=== PATIENT | female | born 1990 | race African-American/Black ===

== ENCOUNTER 2023-07-25 19:02 | Inpatient (IN) | payer OTHER ==
[2023-07-25 20:40] LABS: PH,URINE 5.5 (5.0-8.0); URINE APPEARANCE CLOUDY; URINE BILIRUBIN 1+ (NEGATIVE); URINE COLOR DK YELLOW; URINE GLUCOSE (UA) NEGATIVE (NEGATIVE); URINE KETONE 2+ (NEGATIVE); URINE LEUK ESTERASE 2+ (NEGATIVE); URINE NITRITE NEGATIVE (NEGATIVE); URINE PROTEIN 3+ (NEGATIVE)
[2023-07-25 20:41] LABS: HCG,QUALITATIVE URINE Negative
[2023-07-25 20:41] LABS: BASO % 0.2 % (0-2.0); EOS % 0.1 % (0-4.5); HEMOGLOBIN 11.9 GM/dL (10.7-15.3); LYMPH % 6.2 % (8-40); MCH 25.2 pg (25.7-33.7); MCHC 32.9 g/dl (32.0-36.0); MEAN CELL VOLUME 76.6 fl (80-96); MEAN PLT VOLUME 8.6 fl (7.5-11.1); MONO % 5.9 % (3.8-10.2); NEUT % 87.6 % (42.8-82.8); PLATELET COUNT 312 10^3/uL (134-434); RBC 4.71 M/mm3 (3.60-5.2); RDW 17.1 % (11.6-15.6); WHITE BLOOD COUNT 22.2 K/mm3 (4.0-10.0)
[2023-07-25 20:54] LABS: POTASSIUM 3.4 mmol/L (3.5-5.1)
[2023-07-25 20:54] LABS: EPI CELLS 27.1 /uL (0-25.1); HYALINE CASTS 69.87 /uL (0-3.1); URINE BACTERIA 171.6 /uL (0-1359); URINE WBC 699.6 /uL (0-25.8)
[2023-07-25] MEDS ORDERED: ACETAMINOPHEN INJECTION 100 ML IVPB ONE (20:54)
[2023-07-25 20:56] LABS: ALBUMIN 2.5 g/dl (3.4-5.0); CALCIUM 8.8 mg/dL (8.5-10.1)
[2023-07-25 20:57] LABS: BLOOD UREA NITROGEN 9.8 mg/dL (7-18)
[2023-07-25 20:59] LABS: CREATININE 0.9 mg/dL (0.55-1.3)
[2023-07-25] MEDS: ACETAMINOPHEN 1000 MG/100 ML BAG IVPB ONE (21:00)
[2023-07-25 21:01] LABS: BILIRUBIN,TOTAL 0.4 mg/dL (0.2-1)
[2023-07-25] MEDS: SODIUM CHLORIDE 0.9% 500 ML INFUS.BAG IV ONE ×2 (21:01→23:40)
[2023-07-25] MEDS ORDERED: ONDANSETRON 4 MG/2 ML VIAL ONE (21:33)
[2023-07-25 21:39] LABS: ANISOCYTOSIS 2+; MACROCYTOSIS 0; OVALOCYTE 1+
[2023-07-25] MEDS: ONDANSETRON 4 MG/2 ML VIAL IVPUSH ONE (21:56)
[2023-07-25] MEDS ORDERED: CEFTRIAXONE 1 GM/50 ML BAG ONE (22:31)
[2023-07-25] MEDS: CEFTRIAXONE 1 GM in DEXTROSE 5%-WATER - 50 ML IVPB ONE (22:41)
[2023-07-25] MEDS ORDERED: PIPERACILLIN/TAZOB 3.375 GM 3.375 GM/50 ML BAG IVPB ONE (22:45)
[2023-07-25] MEDS: PIPERACILLIN/TAZOB 3.375 GM 3.375 GM in DEXTROSE 5%-WATER - 50 ML IVPB ONE (22:54)
[2023-07-25] MEDS ORDERED: VANCOMYCIN 1 GRAM (PRE-DOCKED) 1,000 MG/250 ML BAG IVPB ONE (23:35)
[2023-07-25] MEDS: VANCOMYCIN 1,000 MG in DEXTROSE 5%-WATER - 250 ML IVPB ONE (23:40)
[2023-07-26] MEDS: morphine CARPU-JECT 2 MG/1 ML DISP.SYRIN IVPUSH ONE (00:14)
[2023-07-26] MEDS ORDERED: ALBUTEROL SO4 HFA INHALER IH PRN (00:57)
[2023-07-26] MEDS: SODIUM CHLORIDE 0.9%/KCL 20 MEQ/1,000 ML INFUS.BAG IV SCH (02:06)
[2023-07-26] MEDS: ACETAMINOPHEN 1000 MG/100 ML BAG IVPB PRN (03:20)
[2023-07-26 04:05] VITALS: BMI 33.5
[2023-07-26] MEDS: ONDANSETRON 4 MG/2 ML VIAL IVPUSH PRN (07:05)
[2023-07-26] MEDS: PIPERACILLIN/TAZOB 4.5 GM 4.5 GM in DEXTROSE 5%-WATER 100 ML IVPB SCH ×3 (08:30→17:26)
[2023-07-26] MEDS: PANTOPRAZOLE SODIUM 40 MG VIAL IVPUSH SCH (09:08)
[2023-07-26] MEDS ORDERED: CEFTRIAXONE 2,000 MG in DEXTROSE 5%-WATER - 50 ML IVPB SCH (10:00)
[2023-07-26] MEDS: PIPERACILLIN/TAZOB 4.5 GM 4.5 GM in DEXTROSE 5%-WATER 100 ML IVPB ONE (11:40)
[2023-07-26 12:25] LABS: HEMATOCRIT 33.4 % (32.4-45.2); HEMOGLOBIN 10.5 GM/dL (10.7-15.3); MCH 24.6 pg (25.7-33.7); MCHC 31.5 g/dl (32.0-36.0); MEAN PLT VOLUME 9.1 fl (7.5-11.1); PLATELET COUNT 281 10^3/uL (134-434); RBC 4.28 M/mm3 (3.60-5.2); RDW 17.2 % (11.6-15.6); WHITE BLOOD COUNT 20.8 K/mm3 (4.0-10.0)
[2023-07-26 12:42] LABS: INR 1.51 (0.83-1.09); PROTHROMBIN TIME (PATIENT) 17.4 SEC (9.7-13.0)
[2023-07-26 12:50] LABS: CALCIUM 8.5 mg/dL (8.5-10.1)
[2023-07-26 12:51] LABS: ALBUMIN 2.2 g/dl (3.4-5.0); BLOOD UREA NITROGEN 6.9 mg/dL (7-18); MAGNESIUM 2.5 mg/dL (1.8-2.4)
[2023-07-26 12:54] LABS: CREATININE 0.7 mg/dL (0.55-1.3); PHOSPHOROUS 2.4 mg/dL (2.5-4.9)
[2023-07-26 12:56] LABS: BILIRUBIN,TOTAL 0.7 mg/dL (0.2-1); TOT PROT 6.6 g/dl (6.4-8.2)
[2023-07-26] MEDS: ENOXAPARIN NA (PORCINE) 40 MG/0.4 ML DISP.SYRIN SQ SCH (13:33)
[2023-07-26 13:50] LABS: POTASSIUM 3.7 mmol/L (3.5-5.1)
[2023-07-26 13:51] LABS: ANISOCYTOSIS 0; HELMET CELLS 0; HOWELL-JOLLY BODIES 0; MACROCYTOSIS 0; OVALOCYTE 0; ROULEAU 0; SICKELED CELLS 0; TARGET CELLS 0; TEAR DROP CELLS 0; TOXIC GRANULATION 0
[2023-07-27 08:12] LABS: INR 1.72 (0.83-1.09); PROTHROMBIN TIME (PATIENT) 19.9 SEC (9.7-13.0)
[2023-07-27 08:22] LABS: BASO % 0.3 % (0-2.0); EOS % 0.1 % (0-4.5); HEMATOCRIT 31.8 % (32.4-45.2); HEMOGLOBIN 10.1 GM/dL (10.7-15.3); LYMPH % 6.1 % (8-40); MCH 24.8 pg (25.7-33.7); MCHC 31.7 g/dl (32.0-36.0); MEAN CELL VOLUME 78.4 fl (80-96); MEAN PLT VOLUME 9.6 fl (7.5-11.1); MONO % 7.6 % (3.8-10.2); NEUT % 85.9 % (42.8-82.8); PLATELET COUNT 239 10^3/uL (134-434); RBC 4.05 M/mm3 (3.60-5.2); RDW 17.2 % (11.6-15.6); WHITE BLOOD COUNT 13.2 K/mm3 (4.0-10.0)
[2023-07-27 08:41] LABS: POTASSIUM 3.7 mmol/L (3.5-5.1)
[2023-07-27 08:53] LABS: ALBUMIN 1.9 g/dl (3.4-5.0); BLOOD UREA NITROGEN 6.8 mg/dL (7-18); CALCIUM 7.9 mg/dL (8.5-10.1)
[2023-07-27 08:54] LABS: MAGNESIUM 2.2 mg/dL (1.8-2.4)
[2023-07-27 08:56] LABS: CREATININE 0.8 mg/dL (0.55-1.3); PHOSPHOROUS 2.1 mg/dL (2.5-4.9)
[2023-07-27 08:57] LABS: BILIRUBIN,TOTAL 0.5 mg/dL (0.2-1); TOT PROT 6.1 g/dl (6.4-8.2)
[2023-07-27] MEDS: PHYTONADIONE 5 MG TABLET PO ONE (13:53)
[2023-07-28 08:20] LABS: BASO % 0.2 % (0-2.0); EOS % 0.4 % (0-4.5); HEMATOCRIT 30.9 % (32.4-45.2); HEMOGLOBIN 10.2 GM/dL (10.7-15.3); LYMPH % 10.7 % (8-40); MCH 25.3 pg (25.7-33.7); MCHC 32.9 g/dl (32.0-36.0); MEAN CELL VOLUME 76.7 fl (80-96); MEAN PLT VOLUME 8.6 fl (7.5-11.1); MONO % 12.2 % (3.8-10.2); NEUT % 76.5 % (42.8-82.8); PLATELET COUNT 250 10^3/uL (134-434); RBC 4.03 M/mm3 (3.60-5.2); RDW 17.5 % (11.6-15.6); WHITE BLOOD COUNT 13.7 K/mm3 (4.0-10.0)
[2023-07-28 08:31] LABS: INR 1.54 (0.83-1.09); PROTHROMBIN TIME (PATIENT) 17.8 SEC (9.7-13.0)
[2023-07-28 09:02] LABS: POTASSIUM 3.6 mmol/L (3.5-5.1)
[2023-07-28 09:07] LABS: ALBUMIN 1.9 g/dl (3.4-5.0); BLOOD UREA NITROGEN 5.5 mg/dL (7-18); MAGNESIUM 1.8 mg/dL (1.8-2.4)
[2023-07-28 09:10] LABS: CREATININE 0.7 mg/dL (0.55-1.3)
[2023-07-28 09:11] LABS: BILIRUBIN,TOTAL 0.3 mg/dL (0.2-1)
[2023-07-28 09:12] LABS: TOT PROT 5.9 g/dl (6.4-8.2)
[2023-07-28] MEDS ORDERED: BUPIVACAINE HCL/PF 0.25% (2.5MG/ML) 10 ML VIAL ONE (10:00)
[2023-07-28] MEDS ORDERED: FENTANYL CITRATE/PF 50 MCG/ML VIAL ONE ×9 (10:23→15:54)
[2023-07-28] MEDS ORDERED: PROPOFOL 40 ML ONE (10:23)
[2023-07-28] MEDS ORDERED: ROCURONIUM BROMIDE 50 MG/5 ML SYRINGE ONE (10:23)
[2023-07-28] MEDS ORDERED: MIDAZOLAM HCL 2 MG/2 ML SINGLE DOSE VIAL ONE (10:24)
[2023-07-28] MEDS: PIPERACILLIN/TAZOBACTAM 4.5 GM VIAL IVPB ONE (11:15)
[2023-07-28] MEDS: BUPIVACAINE HCL/PF 0.25% (2.5MG/ML) 10 ML VIAL IJ ONE (11:22)
[2023-07-28] MEDS ORDERED: SUGAMMADEX SODIUM 200 MG/2 ML VIAL ONE (13:01)
[2023-07-28] MEDS ORDERED: ACETAMINOPHEN INJECTION 100 ML IVPB ONE (13:03)
[2023-07-28] MEDS ORDERED: PROPOFOL 20 ML ONE (13:21)
[2023-07-28] MEDS ORDERED: LACTATED RINGERS SOLUTION 1,000 ML IV SCH (14:00)
[2023-07-28] MEDS ORDERED: ONDANSETRON 4 MG/2 ML VIAL ONE (14:45)
[2023-07-28] MEDS: ONDANSETRON 4 MG/2 ML VIAL IVPUSH PRN (14:47)
[2023-07-28] MEDS: SODIUM CHLORIDE 0.9%/KCL 20 MEQ/1,000 ML INFUS.BAG IV SCH (15:45)
[2023-07-28] MEDS: PIPERACILLIN/TAZOB 4.5 GM 4.5 GM in DEXTROSE 5%-WATER 100 ML IVPB SCH (17:10)
[2023-07-29] MEDS: ACETAMINOPHEN 1000 MG/100 ML BAG IVPB PRN (01:47)
[2023-07-29 08:36] LABS: BASO % 0.2 % (0-2.0); EOS % 0.1 % (0-4.5); HEMATOCRIT 30.4 % (32.4-45.2); HEMOGLOBIN 9.6 GM/dL (10.7-15.3); MCH 24.6 pg (25.7-33.7); MCHC 31.7 g/dl (32.0-36.0); MEAN CELL VOLUME 77.6 fl (80-96); MEAN PLT VOLUME 9.3 fl (7.5-11.1); MONO % 7.8 % (3.8-10.2); NEUT % 82.9 % (42.8-82.8); PLATELET COUNT 253 10^3/uL (134-434); RBC 3.91 M/mm3 (3.60-5.2); RDW 17.7 % (11.6-15.6)
[2023-07-29 08:42] LABS: INR 1.56 (0.83-1.09)
[2023-07-29 08:51] LABS: POTASSIUM 4.1 mmol/L (3.5-5.1)
[2023-07-29 08:59] LABS: ALBUMIN 1.5 g/dl (3.4-5.0); BLOOD UREA NITROGEN 3.9 mg/dL (7-18); CALCIUM 7.4 mg/dL (8.5-10.1); MAGNESIUM 1.7 mg/dL (1.8-2.4)
[2023-07-29 09:02] LABS: CREATININE 0.5 mg/dL (0.55-1.3)
[2023-07-29 09:03] LABS: BILIRUBIN,TOTAL 0.3 mg/dL (0.2-1)
[2023-07-29] MEDS: ENOXAPARIN NA (PORCINE) 40 MG/0.4 ML DISP.SYRIN SQ SCH (09:54)
[2023-07-29] MEDS: PANTOPRAZOLE SODIUM 40 MG VIAL IVPUSH SCH (09:55)
[2023-07-29] MEDS: MAGNESIUM OXIDE 400 MG TABLET (FP) PO ONE (10:12)
[2023-07-29] MEDS ORDERED: oxyCODONE HCL 5 MG TABLET PO PRN ×3 (11:05→11:06)
[2023-07-29] MEDS: IBUPROFEN 600 MG TABLET (FP) PO SCH (12:40)
[2023-07-29] MEDS: POLYETHYLENE GLYCOL (HEALTHYLAX) 3350 17 GM PACKET PO SCH (12:41)
[2023-07-29] MEDS: ACETAMINOPHEN 500 MG TABLET (FP) PO SCH (15:35)
[2023-07-29] MEDS: AMINO ACIDS/PROTEIN HYDROLYS 30 ML LIQUID.PKT PO SCH (17:11)
[2023-07-30 08:16] LABS: INR 1.57 (0.83-1.09); PROTHROMBIN TIME (PATIENT) 18.1 SEC (9.7-13.0)
[2023-07-30 08:17] LABS: BASO % 0.2 % (0-2.0); EOS % 0.6 % (0-4.5); HEMATOCRIT 26.8 % (32.4-45.2); HEMOGLOBIN 8.7 GM/dL (10.7-15.3); LYMPH % 7.5 % (8-40); MCH 24.9 pg (25.7-33.7); MCHC 32.4 g/dl (32.0-36.0); MEAN PLT VOLUME 9.6 fl (7.5-11.1); MONO % 6.6 % (3.8-10.2); NEUT % 85.1 % (42.8-82.8); PLATELET COUNT 270 10^3/uL (134-434); RBC 3.48 M/mm3 (3.60-5.2); RDW 17.3 % (11.6-15.6); WHITE BLOOD COUNT 16.4 K/mm3 (4.0-10.0)
[2023-07-30 08:26] LABS: POTASSIUM 4.1 mmol/L (3.5-5.1)
[2023-07-30 08:58] LABS: ALBUMIN 1.5 g/dl (3.4-5.0); CREATININE 0.4 mg/dL (0.55-1.3); MAGNESIUM 1.9 mg/dL (1.8-2.4)
[2023-07-30 08:59] LABS: CALCIUM 7.8 mg/dL (8.5-10.1)
[2023-07-30 09:00] LABS: BILIRUBIN,TOTAL 0.3 mg/dL (0.2-1)
[2023-07-30] MEDS: POLYETHYLENE GLYCOL (HEALTHYLAX) 3350 17 GM PACKET PO SCH (10:21)
[2023-07-30] MEDS: MAGNESIUM OXIDE 400 MG TABLET (FP) PO ONE (10:21)
[2023-07-30 21:11] VITALS: RESP 20
[2023-07-31 08:45] LABS: BASO % 0.2 % (0-2.0); EOS % 1.4 % (0-4.5); HEMATOCRIT 27.9 % (32.4-45.2); HEMOGLOBIN 9.3 GM/dL (10.7-15.3); LYMPH % 10.6 % (8-40); MCH 25.3 pg (25.7-33.7); MCHC 33.2 g/dl (32.0-36.0); MEAN CELL VOLUME 76.3 fl (80-96); MONO % 6.8 % (3.8-10.2); PLATELET COUNT 380 10^3/uL (134-434); RBC 3.65 M/mm3 (3.60-5.2); RDW 17.8 % (11.6-15.6); WHITE BLOOD COUNT 16.4 K/mm3 (4.0-10.0)
[2023-07-31 09:02] LABS: POTASSIUM 3.5 mmol/L (3.5-5.1)
[2023-07-31 09:04] LABS: BLOOD UREA NITROGEN 4.8 mg/dL (7-18); CALCIUM 8.3 mg/dL (8.5-10.1)
[2023-07-31 09:05] LABS: ALBUMIN 1.7 g/dl (3.4-5.0)
[2023-07-31 09:07] LABS: CREATININE 0.5 mg/dL (0.55-1.3)
[2023-07-31 09:09] LABS: BILIRUBIN,TOTAL 0.3 mg/dL (0.2-1); TOT PROT 5.8 g/dl (6.4-8.2)
[2023-07-31 09:50] VITALS: BP 115/73; PULSE 80; TEMP 98
[2023-07-31] MEDS: POTASSIUM CHLORIDE TABS 20 MEQ TABLET.ER (FP) PO ONE (10:17)
== END 2023-07-31 11:15 | disposition home or self-care (01) | DRG 225 ==
LOC: JER 19:02 → JERBED 23:25 → J8W 07-26 02:46
PROVIDERS: ADMIT Internal Medicine; ATTEND Nurse Practitioner Acute Care
PROC: 0WJG4ZZ Inspection of Peritoneal Cavity, Percutaneous Endoscopic Approach (ICD-10-PCS; 2023-07-28)
PROC: 0DN80ZZ Release Small Intestine, Open Approach (ICD-10-PCS; 2023-07-28)
PROC: 0UT00ZZ Resection of Right Ovary, Open Approach (ICD-10-PCS; 2023-07-28)
PROC: 0UT50ZZ Resection of Right Fallopian Tube, Open Approach (ICD-10-PCS; 2023-07-28)
PROC: 0W9G00Z Drainage of Peritoneal Cavity with Drainage Device, Open Approach (ICD-10-PCS; 2023-07-28)
PROC: 0DTJ0ZZ Resection of Appendix, Open Approach (ICD-10-PCS; principal; 2023-07-28 14:30)
DX: K35.33 Acute appendicitis with perforation, localized peritonitis, and gangrene, with abscess (principal); J45.909 Unspecified asthma, uncomplicated; D72.829 Elevated white blood cell count, unspecified; R50.9 Fever, unspecified; N83.291 Other ovarian cyst, right side; K66.1 Hemoperitoneum; N73.9 Female pelvic inflammatory disease, unspecified; E66.9 Obesity, unspecified; Z68.33 Body mass index [BMI] 33.0-33.9, adult
CPT/HCPCS: 36415; 74177-TC; 76830-TC; 80053; 81003; 83735; 84100; 84703; 85025; 85610; 86850; 86900; 86901; 87040; 87086; 88304-TC; 88305-TC; 94010; 94760; 97116-GP; 97161-GP; 99285-25; J0131; Q9967